=== PATIENT | male | born 1960 | race Caucasian/White ===

== ENCOUNTER 2019-01-03 14:28 | Observation (INO) | payer MEDICARE ==
[2019-01-03] VITALS (10 sets, daily range): BP systolic 123–160; BP diastolic 80–110; Ht 185.4 cm; Wt 135.5 kg
[~2019-01-03] VITALS: Ht 185.4 cm; Wt 135.5 kg
--- NOTE | ~2019-01-03 | HEMODYNAMI ---
PATIENT:DIDIER BRINK MEDICAL RECORD: [id number] : 62 [facility] ADMISSION DATE: 01/03/19 Generatedon:01/04/201910:33 Patient name: DIDIER BRINK Patient #: [id number] SSN: D OB: 1960 Date of study: 01/04/2019 Page: Of Hemodynamic Procedure Report Patient Data Patient Demographics Procedure consent was obtained First Name: DIDIER Gender: Male Last Name: KEENA : 1960 Patient #: [id number] Age: 58 year(s) Race: Unknown Additional ID: [id number] Contact details [address]: [address] [place] [address] State: [place] City: [place] Zip code: [address] Past Medical History Allergies Allergen Reaction Date Comments Reported Iodine 01/04/2019 Penicillins 01/04/2019 Morphine 01/04/2019 Statins 01/04/2019 Admission Admission Data Admission Date: 01/03/2019 Admission Time: 18:02 Room #: D.2114 Procedure Procedure Types Cath Procedure Diagnostic Procedure [facility] w/Coronaries Sedation Charges Moderate Sedation up to 15 minutes PCI Procedure Coronary Stent Coronary Stent Initial Procedure Description Procedure Date Procedure Date: 01/04/2019 Procedure Start Time: 10:07 Procedure End Time: 10:32 Procedure Staff Name Function Stiven Alfred MD Performing Physician Chelsea Chaney RT Monitor Campbell Mart RN Nurse Derrick Solorzano RT Scrub Procedure Data Cath Procedure Fluoroscopy Diagnostic fluoroscopy Total fluoroscopy Time: 7.2 time: 7.2 min min Diagnostic fluoroscopy Total fluoroscopy dose: dose: 1802 mGy 1802 mGy Contrast Material Contrast Material Type Amount (ml) Isovue 370 158 Entry Location Entry Primary Successful Side Size Upsize Upsize Entry Closure Piña ccessful Closure Location (Fr) 1 (Fr) 2 (Fr) Remarks Device Remarks Radial Right 6 Fr Mechanical artery Short Compression Estimated blood loss: 10 ml Diagnostic catheters Device Type Used For End Catheter Placement DIAGNOSTIC Jabari 110cm LV Angiography 5Fr catheter ([id number]) DIAGNOSTIC Jabari 110cm Right Coronary 5Fr catheter ([id number]) Angiography DIAGNOSTIC Jabari 110cm Left Coronary 5Fr catheter (688608) Angiography DIAGNOSTIC Pigtail 5Fr LV Angiography catheter ([id number]) Procedure Complications No complications Procedure Medications Medication Administration Route Dosage 0.9% NaCl I.V. 100 ml/hr Oxygen etCO2 Nasal cannula 2 l/min Heparin Flush Bag added to field 2 bags (1000units/500ml NS) Lidocaine 2% added to field 20 Radial Cocktail added to field 1 syringe (Verapomil 2mg/Nitro 400mcg/Heparin 1500units) Benadryl I.V. 50 mg Versed I.V. 1 mg Fentanyl I.V. 50 mcg Radial Cocktail I.A. 1 syringe (Verapomil 2mg/Nitro 400mcg/Heparin 1500units) Heparin Bolus I.V. 87954 units Plavix P.O. 600 mg Hemodynamics Rest Heart Rate: 99 (bpm) Pressure Samples Time Site Value (mmHg) Purpose Heart Use Rate(bpm) 10:10 LV 115/26,22 EDP 162 10:15 LV 152/2,20 EDP 116 10:15 LV 152/14,21 Snapshot 98 Gradients Valve Time Site Site Mean SEP/DFP Peak To Heart Use 1 2 (mmHg) (sec/min) Peak Rate (mmHg) (bpm) Aortic 10:16 LV AO 95 Snapshots Pre Cath Intra NCS Post Cath Vital Signs Time Heart Resp SPO2 etCO2 NIBP (mmHg) Rhythm Pain Sedation Rate (ipm) (%) (mmHg) Status Level (bpm) 9:53:21 95 11 92 0 160/108(133) NSR 0 (11) 10(A) , No pain 9:57:43 103 11 94 0 149/98(127) NSR 0 (11) 10(A) , No pain 10:02:03 90 10 92 35.4 157/91(122) NSR 0 (11) 10(A) , No pain 10:07:29 92 11 94 28.6 145/91(136) NSR 0 (11) 9(A) , No pain 10:11:51 96 21 92 29.4 127/75(104) NSR 0 (11) 9(A) , No pain 10:16:05 94 14 93 27.8 130/84(109) NSR 0 (11) 9(A) , No pain 10:20:17 97 16 94 0 138/90(109) NSR 0 (11) 9(A) , No pain 10:24:33 95 11 96 38.4 142/87(127) NSR 0 (11) 10(A) , No pain 10:28:43 94 17 96 33.1 136/103(122) NSR 0 (11) 10(A) , No pain 10:32:57 100 18 97 27.1 149/91(124) NSR 0 (11) 10(A) , No pain Medications Time Medication Route Dose Verified Delivered Reason Not es Effectiveness by by 9:57:39 0.9% NaCl I.V. 100 Campbell Campbell Per physician ml/hr Brittny Mart RN RN 9:57:49 Oxygen etCO2 2 l/min Campbell Campbell for low 02 sats Nasal Brittny Mart cannula RN RN 9:57:58 Heparin Flush added 2 bags Campbell Campbell used for Bag to Brittny Mart procedure (1000units/500ml RN RN NS) 9:58:08 Lidocaine 2% added 20ml Campbell Campbell for local to vial Geriigan Brittny anesthetic field ESQUIVEL RN 9:58:19 Radial Cocktail added 1 Cambpell Campbell used for (Verapomil to syringe Brittny Mart procedure 2mg/Nitro field ESQUIVEL RN 400mcg/Heparin 1500units) 9:58:30 Benadryl I.V. 50 mg Campbell Campbell Per physician Brittny Mart RN RN 10:03:29 Versed I.V. 1 mg Campbell Campbell for sedation Brittny Mart RN RN 10:03:37 Fentanyl I.V. 50 mcg Campbell Campbell for sedation Brittny Mart RN RN 10:08:27 Radial Cocktail I.A. 1 Campbell Stiven for (Verapomil syringe Brittny cobos 2mg/Nitro RN 400mcg/Heparin 1500units) 10:20:57 Heparin Bolus I.V. 13,000 Campbell Campbell for units Brittny Mart anticoagulation RN RN 10:33:18 Plavix P.O. 600 mg Campbell Campbell for Brittny Mart antiplatelet RN RN therapy Procedure Log Time Note 9:26:23 Time tracking: Regular hours (M-F 7:00 - 5:00) 9:26:28 Plan of Care:Hemodynamics will remain stable., Cardiac rhythm will remain stable., Comfort level will be maintained., Respiratory function will remain adequate., Patient/ family verbilizes understanding of procedure., Procedure tolerated without complication., Recovers from procedure without complications.. 9:26:31 Campbell Mart RN sent for patient. Start room use. 9:35:56 Patient received from PCU to CCL 1 Alert and oriented. Tansferred to table in Supine position. 9:35:58 Warm blankets applied, and smith hugger turned on for patient comfort. 9:35:58 Correct patient and procedure confirmed by team. 9:35:59 Signed procedure consent form obtained from patient. 9:36:00 ECG and BP/O2 sat monitors applied to patient. 9:36:01 Full Disclosure recording started 9:52:09 Vital chart was started 9:55:28 Baseline sample Acquired. 9:55:33 Rhythm: sinus rhythm 9:55:40 H&P Date Dictated: 01/04/2019 Within 30 days and on chart.. 9:55:48 Pre-procedure instructions explained to patient. 9:55:48 Pre-op teaching completed and patient verbalized understanding. 9:55:49 Family in patients room. 9:55:55 Patient NPO since Midnight. 9:56:27 Patient allergic to Iodine 9:56:31 Patient allergic to Penicillins 9:56:35 Patient allergic to Morphine 9:56:47 Patient allergic to Statins 9:56:53 Is the patient allergic to Iodine/contrast media? Yes. 9:57:01 Was the patient premedicated? Yes 9:57:03 Is patient on blood thinner?No 9:57:39 0.9% NaCl 100 ml/hr I.V. was administered by Campbell Mart RN; Per physician; 9:57:49 Oxygen 2 l/min etCO2 Nasal cannula was administered by Campbell Mart RN; for low 02 sats; :57:58 Heparin Flush Bag (1000units/500ml NS) 2 bags added to field was administered by Campbell Mart RN; used for procedure; 9:58:08 Lidocaine 2% 20ml vial added to field was administered by Campbell Mart RN; for local anesthetic; 9:58:19 Radial Cocktail (Verapomil 2mg/Nitro 400mcg/Heparin 1500units) 1 syringe added to field was administered by Campbell Mart RN; used for procedure; 9:58:30 Benadryl 50 mg I.V. was administered by Campbell Mart RN; Per physician; 9:58:55 Patient diabetic? No. 9:59:03 If diabetic: On Metformin? No 9:59:07 Previous problem with sedation/anesthesia? No ? 9:59:08 Snore? Yes 9:59:09 Sleep apnea? Yes 9:59:10 Deviated septum? No 9:59:11 Opens mouth fully? Yes 9:59:12 Sticks out tongue? Yes 9:59:17 Airway obstruction? Yes COPD 9:59:20 Dentures? No ? 9:59:23 Pre procedure: right dorsailis pedis pulse 2+ Normal; easily identifiable; not easily obliterated 9:59:25 Modified Taqueria's test Ulnar < 7 seconds 9:59:28 Patient pain scale 0/10 ?. 9:59:33 IV patent on arrival in right forearm with 0.9% NaCl at O. 9:59:35 Lab results completed and on chart. 9:59:39 Right Radial & Right Groin area was prepped with chlora-prep and draped in sterile fashion 9:59:40 Alarms reviewed by R. N. 9:59:40 Sharps counted by scrub and verified by R.N. 9:59:45 Use device set Radial Dx or PCI 9:59:46 ACIST Syringe (30834) opened to sterile field. 9:59:46 Medline Cath Pack ([id number]) opened to sterile field. 9:59:47 Bag Decanter () opened to sterile field. 9:59:47 DIAGNOSTIC WIRE .035 260cm J wire (549413) opened to sterile field. 9:59:48 ACIST Hand Control (97081) opened to sterile field. 9:59:50 ACIST Manifold (77603) opened to sterile field. 9:59:50 Tegaderm 4 x 4 (1626W) opened to sterile field. 9:59:51 MBrace Wrist Support ([id number]) opened to sterile field. 9:59:52 NEEDLE Cook 21G 4cm Radial (M99635) opened to sterile field. 9:59:53 SHEATH 6FR Slender (43-8845) opened to sterile field. 10:02:42 Final Timeout: patient, procedure, and site verified with staff and physician. All members of the team are in agreement. 10:02:44 Right Radial site verified by team. 10:02:52 Maximum allowable Isovue 370 dose 300ml. Physician notified. (300ml for normal creatinines. For patients with creatinine of 1.7 or higher multiply weight(kg) x 5 divided by creatinine.) 10:02:56 Fire Safety Assessment: A--An alcohol-based skin anteseptic being used preoperatively., C--Open oxygen or nitrous oxide is being used., D--An ESU, laser, or fiber-optic light is being used. 10:03:00 Physical assessment completed. ASA score P 2 - A patient with mild systemic disease as per Stiven Alfred MD. 10:03:02 Sedation plan: IV Moderate Sedation Medication:Versed, Fentanyl 10:03:29 Versed 1 mg I.V. was administered by Campbell Mart RN; for sedation; 10:03:37 Fentanyl 50 mcg I.V. was administered by Campbell Mart RN; for sedation; 10:06:48 Procedure started. 10:07:00 Zero performed for pressure channel P1 10:07:09 Local anesthetic to right radial artery with Lidocaine 2% by Stiven Alfred MD.INITIAL ACCESS ONLY 10:07:16 Zero performed for pressure channel P1 10:08:20 A 6 Fr Short sheath was inserted into the Right Radial artery 10:08:27 Radial Cocktail (Verapomil 2mg/Nitro 400mcg/Heparin 1500units) 1 syringe I.A. was administered by Stiven Alfred MD; for vasodilation; 10:09:07 A DIAGNOSTIC Jabari 110cm 5Fr catheter ([id number]) was advanced over the wire and used for LV Angiography.PATIENT HAVING RUNS OF VT. UNABLE TO COMPLETE LV GRAM; CATHETER REMOVED. 10:11:39 A DIAGNOSTIC Jabari 110cm 5Fr catheter (883192) was advanced over the wire and used for Right Coronary Angiography. 10:12:30 A DIAGNOSTIC Jabari 110cm 5Fr catheter (371335) was advanced over the wire and used for Left Coronary Angiography. 10:13:31 Catheter removed. 10:15:13 A DIAGNOSTIC Pigtail 5Fr catheter ([id number]) was advanced over the wire and used for LV Angiography. 10:15:50 LV gram done using RODRIGUEZ 10:15:52 LV hemodynamics recorded. 10:15:55 Injector settings: Ml/sec: 10, Volume: 20, 10:15:58 EF : 55 % 10:16:19 Catheter removed. 10:16:25 Use device set ALFRED PCI 10:16:28 TUBING High Pressure Extension Tubing (Alfred) ([id number]) opened to sterile field. 10:16:30 INFLATOR Merit BasixCompak (MP8246) opened to sterile field. 10:16:32 BMW 300cm [place] 2 J wire (9607039I) opened to sterile field. 10:17:13 GUIDE 6FR XBLAD 3.5 catheter ([id number]) opened to sterile field. 10:18:06 6 Fr XBLAD 3.5 guide catheter was inserted over the wire 10:20:24 BMW wire advanced. 10:20:57 Heparin Bolus 13,000 units I.V. was administered by Campbell Mart RN; for anticoagulation; 10:27:37 Place stent Inflation Number: 1 A INTEGRITY OTW 3.5 X 30 stent ([id number]) was prepped and advanced across the Prox LAD. The stent was deployed at 15 MARIANGEL for 0:20 (min:sec). 10:28:20 Stent catheter was removed intact over wire. 10:28:23 Wire removed. 10:28:24 Guide catheter removed. 10:28:42 Sheath removed intact; hemostasis achieved with Mechanical Compression to the Right Radial artery. 10:28:45 Procedure ended.(Physican Out) 10:29:12 TR BAND Large ([id number]) opened to sterile field. 10:29:17 Fluoroscopy time 07.20 minutes. 10:29:20 Fluoroscopy dose: 1802 mGy 10:29:20 Flurop Dose total: 1802 10:29:24 Contrast amount:Isovue 370 158ml. 10:29:26 Sharps counted by scrub and verified by R.N. 10:29:29 TR band inflated with 12cc of air. 10:29:30 Insertion/operative site no bleeding no hematoma. 10:29:47 Post right radial artery:stable, clean and dry 10:29:49 Post Procedure Pulses reassessed and unchanged 10:29:52 Post-procedure physical assessment completed. ASA score P 2 - A patient with mild systemic disease as per Stiven Alfred MD. 10:29:54 Post procedure rhythm: unchanged. 10:29:56 Estimated blood loss: 10 ml 10:29:59 Post procedure instruction explained to patient.Patient verbalizes understanding. 10:30:00 Patient needs reinforcement of post procedure teaching. 10:30:10 Procedure type changed to Cath procedure, Diagnostic procedure, LHC, LHC w/Coronaries, Sedation Charges, Moderate Sedation up to 15 minutes, PCI procedure, Coronary Stent, Coronary Stent Initial 10:30:14 Procedure Complication : No complications 10:30:23 See physician's report for complete and final results. 10:30:51 Procedure and supply charges have been captured, reviewed, submitted and are correct. 10:32:33 Vital chart was stopped 10:32:34 Report given to PCU. 10:32:39 Patient transfered to PCU with Bed. 10:32:51 Procedure ended. 10:32:51 Full Disclosure recording stopped 10:33:02 End room use (Document Last) 10:33:18 Plavix 600 mg P.O. was administered by Campbell Mart RN; for antiplatelet therapy; Intervention Summary Intervention Notes Time ActionType Lesion and Equipment Action# Pressure Duration Attributes Used 10:27:37 Place stent Prox LAD INTEGRITY 1 15 00:20 OTW 3.5 X 30 stent ([id number]) Device Usage Item Name Manufacture Quantity Catalog Hospital Part Current Minimal Lot# / Number Charge Number Stock Stock Serial# Code ACIST Acist 1 98139 391711 912986 677731 20 Syringe Medical (91341) Systems Inc Medline Medline 1 [id number] 434553 52818 517742 5 Cath Pack ([id number]) Bag Microtek 1 2001S 060638 16762 265008 5 Decanter Medical Inc. () DIAGNOSTIC St Bishnu 1 853280 096766 188847 759157 30 WIRE .035 260cm J wire (588854) ACIST Hand Acist 1 82737 727442 480410 419121 5 Control Medical (30703) Systems Inc ACIST Acist 1 93650 022636 961556 553571 5 Manifold Medical (43890) Systems Inc Tegaderm 4 3M 1 1626W 499870 755054 167406 5 x 4 (1626W) MBrace Advanced 1 140-0250-00 141212 42010 388252 5 Wrist Vascular Support Dynamics ([id number]) NEEDLE Cook Cook Medical 1 N73864 681120 213697 866007 5 21G 4cm Radial (L90177) SHEATH 6FR Terumo 1 [id number] 633839 519283 083250 5 Slender (80-1060) DIAGNOSTIC Terumo 1 40-5023 690852 543511 701224 5 Jabari 110cm 5Fr catheter (953739) DIAGNOSTIC Cardinal 1 [id number] 027335 443133 132531 5 Pigtail 5Fr Health catheter (879181Y) TUBING High Merit 1 [id number] 221216 63478 444303 10 Pressure Medical Extension Tubing (Alfred) (CN1104B) INFLATOR Merit 1 YE9347 981775 303860 054144 15 Merit Medical BasixCompak (SE7615) BMW 300cm Alcantara 1 [id number] 884049 472589 791840 5 [place] 2 Vascular J wire (2922627U) GUIDE 6FR Cardinal 1 [id number] 479808 173261 144417 10 XBLAD 3.5 Health catheter (63703219) INTEGRITY Medtronic 1 [id number] 904814 427432 206165 7 [id number] OTW 3.5 X 30 stent ([id number]) TR BAND Terumo 1 [id number] 202035 130238 696621 40 Large ([id number]) Signature Audit Taiban Stage Time Signature Unsigned Intra-Procedure 01/04/2019 Chelsea 10:33:54 AM Counts RT(R) Signatures Monitor : Chelsea Signature : Counts RT Date : Time : [facility] [address] [place] [address]
[2019-01-03] MEDS ORDERED: TEGRETOL200 MG PO (14:50)
[2019-01-03] MEDS ORDERED: OMEPRAZOLE20 M1 PO (14:50)
[2019-01-03] MEDS ORDERED: ALBUTEROL SULF8.5 GM INH (14:50)
[2019-01-03] MEDS ORDERED: PROTONIX40 MG PO (14:50)
--- NOTE | 2019-01-03 15:36 | NUR ---
NTG TABS X 1 GIVEN EVERY 5 MIN FOR A TOTAL OF 3 TABS. PAIN RATED 9/10 PRIOR TO NTG AND DECREASED TO 7/10 AFTER 3 TABS. STATE THAT THE HEADACHE IS WORSE THAN THE CHEST PAIN.
--- NOTE | 2019-01-03 16:25 | NUR ---
C/O CONTINUED HEADACHE FROM PREVIOUS NTG TABS. ERP INFORMED ORDERS RECEIVED. PT RATE PAIN 10/10 FOR HEADACHE.
[2019-01-03 16:59] LABS: BASOPHILS 0.6 % (0-2); EOSINOPHILS 2.2 % (0-7); HEMATOCRIT 42.8 % (42.0-54.0); HEMOGLOBIN 14.8 g/dL (13.5-17.5); IMMATURE GRANULOCYTES 1.4 % (0-5); LYMPHOCYTES 17.2 % (15-50); MCH 28.5 pg (26.0-34.0); MCHC 34.6 g/dL (31.0-37.0); MCV 82.5 fL (80.0-100.0); MEAN PLATELET VOLUME 9.7 fL (7.4-10.4); MONOCYTES 8.5 % (2-11); NEUTROPHILS 70.1 % (40-80); PLATELET COUNT 312 10x3/uL (130-400); RBC 5.19 10x6/uL (4.20-6.10); RDW 15.2 % (11.5-14.5); WBC 11.7 10x3/uL (4.8-10.8)
[2019-01-03 17:08] LABS: PROTIME 12.7 SECONDS (11.6-15.0)
[2019-01-03 17:10] LABS: D-DIMER-QUANTITATIVE 0.45 ug/mLFEU (0.20-0.54)
[2019-01-03 17:16] LABS: ALBUMIN 3.3 g/dL (3.4-5.0); ALKALINE PHOSPHATASE 113 U/L (46-116); ALT (SGPT) 107 U/L (10-68); BILIRUBIN - TOTAL 0.16 mg/dL (0.2-1.3); CALC OSMOLALITY 280 mosm/kg (275-300); CALCIUM 8.4 mg/dL (8.5-10.1); CARBON DIOXIDE 29.4 mmol/L (21.0-32.0); CHLORIDE - SERUM 104 mmol/L (98-107); CREATININE - SERUM 1.2 mg/dL (0.6-1.3); GLUCOSE 124 mg/dL (74-106); PROTEIN - SERUM 7.8 g/dL (6.4-8.2); SODIUM 141 mmol/L (136-145); UREA NITROGEN 10 mg/dL (7-18); eGFR NON AFRICAN AMERICAN 66 mL/min (90-120)
[2019-01-03 17:27] LABS: CKMB 0.9 U/L (0.0-3.6); CREATINE KINASE 110 UL (21-232)
[2019-01-03 17:28] LABS: TROPONIN-I < 0.017 ng/mL (0.000-0.060)
--- NOTE | 2019-01-03 21:23 | NUR ---
PT ADMITTED TO ROOM 2113 FROM ER AT 1830. ALERT/ORIENTED. AMBULATORY. IV TO RFA WITH NS @ 75ML/HR. ADMISSION ASSESSMENT AND HISTORY OBTAINED ON INITIAL ROUNDS. PT C/O THAT THE DEMEMROL HE RECIEVED IN ER HAS NOT MADE HIS CHEST PAIN ANY BETTER AT ALL. SR PER TELEMETRY. DESCRIBES CHEST PAIN 10/10, SUBSTERNAL. MEDICATED WITH DEMEROL 50MG SIVP AND WILL MONITOR. HAVE PROVIDED WITH SANDWICH TRAY AND DRINKS. INSTRUCTED ON NPO AFTER MIDNIGHT.
[2019-01-04 00:30] VITALS: BP 144/89
--- NOTE | 2019-01-04 02:01 | NUR ---
PT REQUESTED PAIN MED FOR CHEST PRESSURE/DISCOMFORT 06/24. MEDICATED WITH DEMEROL 50MG SIVP TO RFA PIV. GIRLFRIEND AT BEDSIDE. MONITOR AND CPOC. INSTRUCTED PT ON NPO UNTIL SEEN BY GLUE SPRAYER IN AM.
[2019-01-04 03:48] VITALS: BP 149/94
--- NOTE | 2019-01-04 04:40 | NUR ---
NO CHANGE FROM INITIAL SHIFT ASSESSMENT. PT RESTING WITH FAMILY X 1 AT BEDSIDE. HAS HAD TWO DOSES OF DEMEROL THIS SHIFT FOR CHEST PAIN. SR PER TELEMETRY. MONITOR AND CPOC. NPO UNTIL SEEN BY BOAT BUILDER AND REPAIRER.
[2019-01-04 05:52] LABS: HEMOGLOBIN 13.7 g/dL (13.5-17.5); LYMPHOCYTES 25.1 % (15-50); MCH 28.8 pg (26.0-34.0); MCHC 34.3 g/dL (31.0-37.0); MEAN PLATELET VOLUME 9.2 fL (7.4-10.4); NEUTROPHILS 64.5 % (40-80); RBC 4.76 10x6/uL (4.20-6.10); RDW 15.1 % (11.5-14.5)
[2019-01-04 05:53] LABS: PLATELET COUNT 249 10x3/uL (130-400); WBC 8.6 10x3/uL (4.8-10.8)
[2019-01-04 06:13] LABS: CALCIUM 8.1 mg/dL (8.5-10.1); CARBON DIOXIDE 27.8 mmol/L (21.0-32.0); CHLORIDE - SERUM 105 mmol/L (98-107); CREATININE - SERUM 1.1 mg/dL (0.6-1.3); GLUCOSE 113 mg/dL (74-106); SODIUM 139 mmol/L (136-145); eGFR NON AFRICAN AMERICAN 73 mL/min (90-120)
[2019-01-04 06:16] LABS: CALC OSMOLALITY 278 mosm/kg (275-300); TROPONIN-I < 0.017 ng/mL (0.000-0.060); UREA NITROGEN 13 mg/dL (7-18)
[2019-01-04 07:48] VITALS: BP 132/91
--- NOTE | 2019-01-04 08:05 | NUR ---
CONSENTS SIGNED FOR [facility]. WILL CONT. PLAN OF CARE.
--- NOTE | 2019-01-04 09:35 | NUR ---
LEAVING FOR JACK SPINNER BY BED. WILL CONT. PLAN OF CARE.
--- NOTE | 2019-01-04 10:55 | NUR ---
BACK FROM CFO CONTROLLER. VS WNL. RIGHT WRIST STABLE WITH TR BAND INTACT. WILL CONT. PLAN OF CARE.
[2019-01-04] MEDS ORDERED: PLAVIX75 MG PO (10:58)
[2019-01-04] MEDS ORDERED: ASPIRIN81 MG PO (10:59)
[2019-01-04 14:03] VITALS: BP 162/73
--- NOTE | 2019-01-04 14:29 | NUR ---
TR BAND DCD WITHOUT BLEEDING OR HEMATOMA NOTED. WILL MONITOR.
[2019-01-04 14:41] VITALS: BP 140/82
--- NOTE | 2019-01-04 14:44 | NUR ---
IV AND TELEMETRY DCD. DC PLANS GIVEN. UNDERSTANDING VOICED.
--- NOTE | 2019-01-04 15:01 | NUR ---
ESCORTED TO CAR BY W/C.
--- NOTE | 2019-01-05 08:35 | MORECARE ---
CASE MANAGEMENT DISCHARGE SUMMARY PATIENT: DIDIER BRINK UNIT: [id number] ADM DATE: 01/03/19 AGE: 58 : 62 SEX: M ROOM/BED: D.2114 AUTHOR: BULL BELTRE PHYSICIAN: REFERRING PHYSICIAN: LEIA RYAN M.D. DATE OF SERVICE: 01/05/19 Discharge Plan Patient Name: DIDIER BRINK [facility] [facility] 1960 Planned Disposition: Home Anticipated Discharge Date: 01/04/19 Discharge Date: 01/04/2019 Expected LOS: 1 Initial Reviewer: [email or web address] Initial Review Date: 01/05/2019 Generated: 01/05/19 9:35 am Patient Name: DIDIER BRINK Page 99410 at 0835 All edits/amendments must be made on the electronic document DICTATION DATE: 01/05/1933 PHYSICIST ACOUSTICS: MARCIAL 01/05/1933 RPT#: [id number] DC DATE:01/04/19 STATUS: DIS IN [facility] [address] [place] [address] END OF REPORT
== END 2019-01-04 15:02 | disposition home or self-care (01) ==
LOC: D.ER 14:28 → D.M2 18:02 → D.EDHOLD 18:02 → OBSVTIME 18:03 → D.M2 18:11
PROVIDERS: Family Medicine; ADMIT Internal Medicine Cardiovascular Disease; ATTEND Internal Medicine Cardiovascular Disease
DX: I25.110 Atherosclerotic heart disease of native coronary artery with unstable angina pectoris (principal); I10 Essential (primary) hypertension; I45.10 Unspecified right bundle-branch block

== ENCOUNTER 2019-01-16 16:03 | Inpatient (IN) | payer MEDICARE ==
[~2019-01-16] VITALS: Ht 185.4 cm; Wt 129.1 kg
--- NOTE | ~2019-01-16 | HP ---
PATIENT: DIDIER STEPHEN MEDICAL RECORD: [id number] ACCOUNT: [id number] LOCATION:[address] : [birth year] ADMISSION DATE: 01/16/19 PCP: No PCP HISTORY AND PHYSICAL EXAMINATION DIAGNOSES: 1. Deep vein thrombosis, right upper extremity. 2. Coronary artery disease. 3. Recent PTCA and stent, right radial approach. 4. Seizure disorder, controlled on Tegretol. 5. Smoking. 6. COPD. HISTORY: Mr. Stephen recently underwent PTCA and stent via right radial approach by Dr. Alfred of an LAD lesion. He is stable from a cardiac standpoint. He has noticed increased pain and swelling of the right upper extremity over the past 2-3 days. He presents. His CTA is with wide patency of the arterial system; however, venous Doppler shows deep vein thrombosis of the right subclavian vein. He continues to have pain and swelling in the arm. PHYSICAL EXAMINATION: GENERAL APPEARANCE: Well-nourished, well-developed, appears stated age. Level of distress, comfortable. PSYCHIATRIC: Mental status, alert, normal affect. Orientation, oriented to time, place and person. EYES: Lids and conjunctiva, noninjected. No discharge, no pallor. ENT: Lips, teeth, gums, normal dentition. Oropharynx, no cyanosis, no pallor. NECK: Carotid arteries, bilateral normal upstroke, no bruits, no thrills. JUGULAR VEINS: No jugular venous pressure or distention. CERVICAL LYMPH NODES: Nontender, nonenlarged. THYROID: Not enlarged. Nontender. No nodules. LUNGS: Respiratory effort, unlabored. CHEST: Normal curvature. No thoracic deformity. No chest wall tenderness. Percussion, resonant. Auscultation, clear. No wheezes, no rales, no rhonchi. CARDIOVASCULAR: Precordial exam, nondisplaced. No heaves or pericardial thrills. Rate and rhythm, regular. Heart sounds, normal S1, normal S2. No S3, no gallop, no rub. Systolic murmur, not heard. Diastolic murmur, not heard. EXTREMITIES: No cyanosis, no edema. Peripheral pulses, full and equal in all extremities, except as noted. No bruits appreciated. ABDOMEN: Soft, nondistended. Normal aorta. No bruit. Nontender. No masses. Liver, nontender, no hepatomegaly. Spleen, nontender, no splenomegaly. MUSCULOSKELETAL: No joint tenderness. No joint swelling. No erythema. NEUROLOGICAL: Normal gait, normal strength, normal tone. SKIN: Warm and dry. OVERALL IMPRESSION: Deep vein thrombosis, right upper extremity. He is on heparin at this point. [facility] of [facility]agulation and pain control. TRANSINT:[id number] Voice Confirmation ID: [id number] DOCUMENT ID: [id number] HISTORY AND PHYSICAL [id number] DIDIER STEPHEN JEFFREY MD CC: [id number] DICTATION DATE: 01/17/19 1157 HYDRAULIC PUNCH PRESS OPERATOR: 01/17/19 1352 ADM IN [facility] [address] [place] [id number]
--- NOTE | ~2019-01-16 | DS ---
PATIENT:DIDIER STEPHEN :62 MEDICAL RECORD: [id number] DISCHARGE SUMMARY ADMISSION DATE: 01/17/19 DISCHARGE DATE: 01/18/19 DIAGNOSES: 1. Deep vein thrombosis, right upper extremity. 2. Coronary artery disease. 3. Recent PTCA and stent. 4. Chronic obstructive pulmonary disease. 5. Smoking history. 6. Hypertension. HISTORY HOSPITAL COURSE: Mr. Stephen presented last week with anginal symptomatology. Underwent cardiac catheterization by Dr. Alfred through a right radial arterial approach. He came back this weekend with right arm pain. Found to have deep vein thrombosis in the right subclavian vein. The arterial study was normal. He was placed on heparin drip, changed over to Eliquis. Given samples of Eliquis at discharge as well as [place] for pain control. Follow up with Dr. Alfred as previously scheduled. TRANSINT:[id number] Voice Confirmation ID: [id number] DOCUMENT ID: [id number] DESTINY ACOSTA MD CC: [id number] DICTATION DATE: 01/18/19 1300 DEPENDENCY COUNSELOR: 01/19/19 0449 DIS IN 01/18/19 [facility] [address] [place] [address]
[~2019-01-16 16:03] MED LIST: ALBUTEROL SULF8.5 GM INH; ASPIRIN81 MG PO; OMEPRAZOLE20 M1 PO; PLAVIX75 MG PO; PROTONIX40 MG PO; TEGRETOL200 MG PO
[2019-01-16 16:50] VITALS: BP 158/105
[2019-01-16 17:58] LABS: BASOPHILS 0.6 % (0-2); EOSINOPHILS 3.3 % (0-7); HEMATOCRIT 43.4 % (42.0-54.0); HEMOGLOBIN 14.6 g/dL (13.5-17.5); IMMATURE GRANULOCYTES 0.6 % (0-5); LYMPHOCYTES 16.3 % (15-50); MCHC 33.6 g/dL (31.0-37.0); MCV 83.3 fL (80.0-100.0); MEAN PLATELET VOLUME 9.7 fL (7.4-10.4); MONOCYTES 9.9 % (2-11); NEUTROPHILS 69.3 % (40-80); PLATELET COUNT 277 10x3/uL (130-400); RBC 5.21 10x6/uL (4.20-6.10); RDW 15.1 % (11.5-14.5); WBC 9.9 10x3/uL (4.8-10.8)
[2019-01-16 18:01] VITALS: BP 138/88
[2019-01-16 18:13] LABS: ALBUMIN 3.5 g/dL (3.4-5.0); ALKALINE PHOSPHATASE 113 U/L (46-116); ALT (SGPT) 62 U/L (10-68); APTT 26.6 SECONDS (22.8-39.4); BILIRUBIN - TOTAL 0.17 mg/dL (0.2-1.3); CALC OSMOLALITY 274 mosm/kg (275-300); CALCIUM 8.7 mg/dL (8.5-10.1); CARBON DIOXIDE 23.4 mmol/L (21.0-32.0); CHLORIDE - SERUM 105 mmol/L (98-107); GLUCOSE 95 mg/dL (74-106); INR 1.01 (0.85-1.17); POTASSIUM - SERUM 4.3 mmol/L (3.5-5.1); PROTIME 12.8 SECONDS (11.6-15.0); SODIUM 138 mmol/L (136-145); UREA NITROGEN 10 mg/dL (7-18); eGFR NON AFRICAN AMERICAN 82 mL/min (90-120)
[2019-01-16 20:00] VITALS: BP 139/78
[2019-01-17] VITALS: BP 139/78
[2019-01-17 03:42] VITALS: BP 139/78; Ht 185.4 cm; Wt 129.1 kg
[2019-01-17 04:00] VITALS: BP 148/82
[2019-01-17 06:38] LABS: BASOPHILS 0.1 % (0-2); EOSINOPHILS 0.1 % (0-7); HEMATOCRIT 40.8 % (42.0-54.0); HEMOGLOBIN 14.1 g/dL (13.5-17.5); IMMATURE GRANULOCYTES 0.6 % (0-5); LYMPHOCYTES 7.1 % (15-50); MCH 28.4 pg (26.0-34.0); MCHC 34.6 g/dL (31.0-37.0); MCV 82.3 fL (80.0-100.0); MEAN PLATELET VOLUME 9.4 fL (7.4-10.4); MONOCYTES 4.2 % (2-11); NEUTROPHILS 87.9 % (40-80); PLATELET COUNT 282 10x3/uL (130-400); RBC 4.96 10x6/uL (4.20-6.10); RDW 15.1 % (11.5-14.5)
[2019-01-17 06:55] LABS: ALBUMIN 3.4 g/dL (3.4-5.0); ANION GAP 15.8 mmol/L (8-16); BILIRUBIN - TOTAL 0.24 mg/dL (0.2-1.3); CALCIUM 8.9 mg/dL (8.5-10.1); CARBON DIOXIDE 20.7 mmol/L (21.0-32.0); CREATININE - SERUM 1.2 mg/dL (0.6-1.3); POTASSIUM - SERUM 4.5 mmol/L (3.5-5.1); PROTEIN - SERUM 8.1 g/dL (6.4-8.2)
[2019-01-17 09:25] VITALS: BP 178/99
[2019-01-17 14:03] VITALS: BP 147/98
[2019-01-17] MEDS ORDERED: COREG 3.1253.125 MG PO (14:15)
[2019-01-17] MEDS ORDERED: SYMBICORT 16010.2 GM INH (14:15)
[2019-01-17 20:00] VITALS: BP 118/102
[2019-01-18] VITALS: BP 138/98
[2019-01-18 04:00] VITALS: BP 144/59
[2019-01-18 08:55] VITALS: BP 137/93; BP 139/93
[2019-01-18 12:36] VITALS: BP 137/78
[2019-01-18] MEDS ORDERED: ELIQUIS5 MG PO (13:42)
[2019-01-18] MEDS ORDERED: HYDROCODON-ACE1 EA10 PO (13:43)
--- NOTE | 2019-01-18 14:01 | MORECARE ---
CASE MANAGEMENT DISCHARGE SUMMARY PATIENT: DIDIER BRINK UNIT: [id number] ADM DATE: 01/17/19 AGE: 58 : 62 SEX: M ROOM/BED: D.2110 AUTHOR: BULL BELTRE PHYSICIAN: REFERRING PHYSICIAN: DESTINY CAOSTA MD DATE OF SERVICE: 01/18/19 Discharge Plan Patient Name: DIDIER BRINK [facility] [facility] 1960 Planned Disposition: Home Anticipated Discharge Date: 01/18/19 Discharge Date: Expected LOS: 1 Initial Reviewer: [email or web address] Initial Review Date: 01/18/2019 Generated: 01/18/19 3:00 pm DCPIA - Discharge Planning Initial Assessment Updated by [email or web address]: Navin Rodriguez on 01/18/19 1:56 pm * Is the patient Alert and Oriented? Yes * How many steps to enter\exit or inside your home? 0-0 / 3-I * PCP IN PROCESS OF OBTAINING NEW PRIMARY CARE DOCTOR ON [facility], CANNOT REMEMBER DOCTOR'S NAME * [facility] [address] * Preadmission Environment Home with Family * ADLs Independent * Equipment None * Other Equipment NO MEDICAL EQUIPMENT PROVIDER PREFERENCE * List name and contact numbers for known caregivers / representatives who currently or will assist patient after discharge: RIGO GRAY, SIGNIFICANT OTHER, * Verbal permission to speak to the caregivers and representatives has been obtained from the patient. N/A * Community resources currently utilized None * Please name any agencies selected above. NONE * Additional services required to return to the preadmission environment? No * Can the patient safely return to the preadmission environment? Yes * Has this patient been hospitalized within the prior 30 days at any hospital? Yes Patient Name: DIDIER BRINK Page [id number] at 1401 All edits/amendments must be made on the electronic document DICTATION DATE: 01/18/19 1400 ANALYTICAL DATA SCIENTIST: MARCIAL 01/18/19 1400 RPT#: [id number] DC DATE: STATUS: ADM IN [facility] [address] [id number] END OF REPORT
--- NOTE | 2019-01-18 14:09 | MORECARE ---
CASE MANAGEMENT DISCHARGE SUMMARY PATIENT: DIDIER BRINK UNIT: [id number] ADM DATE: 01/17/19 AGE: 58 : 62 SEX: M ROOM/BED: D.2110 AUTHOR: ALEXSANDER,DOC PHYSICIAN: REFERRING PHYSICIAN: DESTINY ACOSTA MD DATE OF SERVICE: 01/18/19 Discharge Plan Patient Name: DIDIER BRINK Facility: [facility]:[place] : 1960 Planned Disposition: Home Anticipated Discharge Date: 01/18/19 Discharge Date: Expected LOS: 1 Initial Reviewer: [email or web address] Initial Review Date: 01/18/2019 Generated: 01/18/19 3:09 pm Comments DCP- Discharge Planning Updated by [email or web address]: Navin Rodriguez on 01/18/19 1:[address] Patient Name: DIDIER BRINK Admission Status: ER Accout number: [id number] Admission Date: 01-17-2019 : 1960 Admission Diagnosis: Attending: VIOLA ACOSTA Current LOS: 1 Anticipated DC Date: 01-18-2019 Planned Disposition: Home Primary Insurance: MEDICARE A & B Discharge Planning Comments: CM MET WITH PT IN ROOM TO DISCUSS DISCHARGE PLANNING AND NEEDS. PT REPORTS LIVING AT HOME INDEPENDENTLY WITH HIS SIGNIFICANT OTHER. PT HAS NO MEDICAL EQUIPMENT AND NO MEDICAL EQUIPMENT PROVIDER. PT HAS NO OUTSIDE SERVICES ASSISTING IN THE HOME. CM DISCUSSED AVAILABILITY OF HOME HEALTH, REHAB SERVICES AND MEDICAL EQUIPMENT. PT DENIES DISCHARGE NEEDS, REPORTS HIS FRIEND WILL PICK HIM UP FOR DISCHARGE HOME. PT REPORTS HAVING BEEN PRESCRIBED INHALERS AND WANTED TO KNOW IF CM COULD GET HIM A NEBULIZER. CM REVIEWED DISCHARGE MEDICATIONS LISTING, EXPLAINED TO PT THAT THE DOCTOR HAS NOT PRESCRIBED ANY INHALED MEDICATIONS FOR DISCHARGE HOME AND CM COULD NOT ARRANGE NEBULIZER. CM INSTRUCTED PT TO FOLLOW UP WITH PRIMARY CARE DOCTOR. PT DENIES NEEDS. [facility]AR[facility] NURSE NOTIFIED. Lard Maker: Navin Rodriguez DCPIA - Discharge Planning Initial Assessment Updated by [email or web address]: Navin Rodriguez on 01/18/19 1:56 pm * Is the patient Alert and Oriented? Yes * How many steps to enter\exit or inside your home? 0-0 / 3-I * PCP IN PROCESS OF OBTAINING NEW PRIMARY CARE DOCTOR ON [facility], CANNOT REMEMBER DOCTOR'S NAME * Pharm[facility] [address] * Preadmission Environment Home with Family * ADLs Independent * Equipment None * Other Equipment NO MEDICAL EQUIPMENT PROVIDER PREFERENCE * List name and contact numbers for known caregivers / representatives who currently or will assist patient after discharge: RIGO GRAY, SIGNIFICANT OTHER, * Verbal permission to speak to the caregivers and representatives has been obtained from the patient. N/A * Community resources currently utilized None * Please name any agencies selected above. NONE * Additional services required to return to the preadmission environment? No * Can the patient safely return to the preadmission environment? Yes * Has this patient been hospitalized within the prior 30 days at any hospital? Yes Last DP export: 01/18/19 1:00 pm Patient Name: DIDIER BRINK Page [id number] at 1409 All edits/amendments must be made on the electronic document DICTATION DATE: 01/18/191408 DONOR RELATIONS MANAGER: MARCIAL 01/18/19 140 RPT#: [id number] DC DATE: STATUS: ADM IN [facility] [address] [place] [address] END OF REPORT
== END 2019-01-18 14:19 | disposition home or self-care (01) | DRG 301 ==
LOC: D.ER 16:03 → D.M2 16:03 → D.OPS 16:03 → EDSTATUS 18:41 → D.M2 18:57 → D.OPS 19:47 → OBSVTIME 19:49 → D.M2 19:49
PROVIDERS: Family Medicine; ADMIT Internal Medicine Interventional Cardiology; ATTEND Internal Medicine Interventional Cardiology
DX: I82.621 Acute embolism and thrombosis of deep veins of right upper extremity (principal); G40.909 Epilepsy, unspecified, not intractable, without status epilepticus; J44.9 Chronic obstructive pulmonary disease, unspecified; I25.10 Atherosclerotic heart disease of native coronary artery without angina pectoris; I10 Essential (primary) hypertension; G50.0 Trigeminal neuralgia; K21.9 Gastro-esophageal reflux disease without esophagitis; Z87.891 Personal history of nicotine dependence

== ENCOUNTER 2019-02-08 18:19 | Emergency (ER) | payer MEDICARE ==
[~2019-02-08] VITALS: Ht 185.4 cm; Wt 127.3 kg
[~2019-02-08 18:19] MED LIST changes: +COREG 3.1253.125 MG PO; +ELIQUIS5 MG PO; +HYDROCODON-ACE1 EA10 PO; +SYMBICORT 16010.2 GM INH
[2019-02-08 18:45] VITALS: Ht 185.4 cm; Wt 127.3 kg
[2019-02-08 21:19] VITALS: BP 140/95
== END 2019-02-08 21:22 | disposition home or self-care (01) ==
LOC: D.ER 18:19
DX: I82.621 Acute embolism and thrombosis of deep veins of right upper extremity (principal)

== ENCOUNTER 2019-02-17 19:16 | Emergency (ER) | payer MEDICARE ==
[2019-02-17 19:23] VITALS: BMI 37.0
[2019-02-17 19:49] LABS: BASOPHILS 0.6 % (0-2); EOSINOPHILS 4.4 % (0-7); HEMATOCRIT 38.2 % (42.0-54.0); IMMATURE GRANULOCYTES 0.7 % (0-5); LYMPHOCYTES 19.7 % (15-50); MCH 28.3 pg (26.0-34.0); MCV 83.2 fL (80.0-100.0); MEAN PLATELET VOLUME 9.3 fL (7.4-10.4); MONOCYTES 10.6 % (2-11); PLATELET COUNT 238 10x3/uL (130-400); RBC 4.59 10x6/uL (4.20-6.10); RDW 15.4 % (11.5-14.5); WBC 8.8 10x3/uL (4.8-10.8)
[2019-02-17 20:09] LABS: ALBUMIN 3.4 g/dL (3.4-5.0); ANION GAP 16.6 mmol/L (8-16); BILIRUBIN - TOTAL 0.16 mg/dL (0.2-1.3); CALCIUM 8.2 mg/dL (8.5-10.1); CARBON DIOXIDE 22.4 mmol/L (21.0-32.0); CREATININE - SERUM 1.3 mg/dL (0.6-1.3); PROTEIN - SERUM 7.5 g/dL (6.4-8.2)
--- NOTE | 2019-02-17 21:43 | NUR ---
DR HECTOR NOTIFIED OF ASSESSMENT RESULTS. PATIENT IS A LOW RISK. RESOURCES GIVEN. REVIEWED. PATIENT VERBALIZES UNDERSTANDING.
[2019-02-17 22:15] LABS: APTT 26.6 SECONDS (22.8-39.4); INR 1.04 (0.85-1.17); PROTIME 13.1 SECONDS (11.6-15.0)
[2019-02-17 22:16] LABS: CKMB 1.2 U/L (0.0-3.6); CREATINE KINASE 99 UL (21-232); MAGNESIUM - SERUM 2.1 mg/dL (1.8-2.4)
[2019-02-17 22:22] LABS: TROPONIN-I < 0.017 ng/mL (0.000-0.060)
[2019-02-17] MEDS ORDERED: CYCLOBENZAPRINE10 MG PO (23:40)
[2019-02-17] MEDS ORDERED: ACETAMINOPHEN500 M1 PO (23:40)
[2019-02-18 00:10] VITALS: BP 132/98
== END 2019-02-18 00:10 | disposition home or self-care (01) ==
LOC: D.ER 19:16
PROVIDERS: Family Medicine
DX: G89.18 Other acute postprocedural pain (principal); R22.2 Localized swelling, mass and lump, trunk; Z86.718 Personal history of other venous thrombosis and embolism

== ENCOUNTER 2019-02-20 17:00 | Emergency (ER) | payer MEDICARE ==
[~2019-02-20] VITALS: Ht 185.4 cm; Wt 127.3 kg
[~2019-02-20 17:00] MED LIST changes: +ACETAMINOPHEN500 M1 PO; +CYCLOBENZAPRINE10 MG PO
[2019-02-20 17:08] VITALS: Ht 185.4 cm; Wt 127.3 kg
[2019-02-20 17:29] LABS: BASOPHILS 0.7 % (0-2); EOSINOPHILS 4.8 % (0-7); HEMATOCRIT 39.6 % (42.0-54.0); HEMOGLOBIN 13.6 g/dL (13.5-17.5); IMMATURE GRANULOCYTES 0.5 % (0-5); LYMPHOCYTES 17.9 % (15-50); MCH 28.7 pg (26.0-34.0); MCHC 34.3 g/dL (31.0-37.0); MCV 83.5 fL (80.0-100.0); MEAN PLATELET VOLUME 9.2 fL (7.4-10.4); MONOCYTES 10.9 % (2-11); NEUTROPHILS 65.2 % (40-80); PLATELET COUNT 268 10x3/uL (130-400); RBC 4.74 10x6/uL (4.20-6.10); WBC 9.2 10x3/uL (4.8-10.8)
[2019-02-20 17:38] LABS: APTT 28.4 SECONDS (22.8-39.4); INR 1.12 (0.85-1.17); PROTIME 13.9 SECONDS (11.6-15.0)
[2019-02-20 17:44] LABS: ALBUMIN 3.6 g/dL (3.4-5.0); ALKALINE PHOSPHATASE 111 U/L (46-116); ALT (SGPT) 78 U/L (10-68); BILIRUBIN - TOTAL 0.32 mg/dL (0.2-1.3); CALC OSMOLALITY 284 mosm/kg (275-300); CALCIUM 8.6 mg/dL (8.5-10.1); CHLORIDE - SERUM 107 mmol/L (98-107); CREATININE - SERUM 1.3 mg/dL (0.6-1.3); GLUCOSE 119 mg/dL (74-106); POTASSIUM - SERUM 3.7 mmol/L (3.5-5.1); PROTEIN - SERUM 7.8 g/dL (6.4-8.2); SODIUM 142 mmol/L (136-145); UREA NITROGEN 14 mg/dL (7-18); eGFR NON AFRICAN AMERICAN 60 mL/min (90-120)
[2019-02-20 17:56] LABS: CREATINE KINASE 116 UL (21-232); MAGNESIUM - SERUM 2.1 mg/dL (1.8-2.4); TROPONIN-I < 0.017 ng/mL (0.000-0.060)
[2019-02-21 00:38] VITALS: BP 147/87
== END 2019-02-21 00:39 | disposition home or self-care (01) ==
LOC: D.ER 17:00
PROVIDERS: Family Medicine
DX: R07.9 Chest pain, unspecified (principal); K44.9 Diaphragmatic hernia without obstruction or gangrene

== ENCOUNTER 2019-02-28 14:01 | Emergency (ER) | payer MEDICARE ==
[~2019-02-28] VITALS: Ht 185.4 cm; Wt 127.3 kg
[2019-02-28 14:08] VITALS: Ht 185.4 cm; Wt 127.3 kg
[2019-02-28 15:04] LABS: BASOPHILS 0.2 % (0-2); EOSINOPHILS 2.7 % (0-7); HEMATOCRIT 41.4 % (42.0-54.0); HEMOGLOBIN 14.3 g/dL (13.5-17.5); IMMATURE GRANULOCYTES 0.6 % (0-5); LYMPHOCYTES 13.7 % (15-50); MCH 28.3 pg (26.0-34.0); MCHC 34.5 g/dL (31.0-37.0); MEAN PLATELET VOLUME 9.5 fL (7.4-10.4); MONOCYTES 8.8 % (2-11); PLATELET COUNT 302 10x3/uL (130-400); RBC 5.05 10x6/uL (4.20-6.10); RDW 15.1 % (11.5-14.5); WBC 9.7 10x3/uL (4.8-10.8)
[2019-02-28 15:33] LABS: ALBUMIN 3.6 g/dL (3.4-5.0); ALKALINE PHOSPHATASE 112 U/L (46-116); ALT (SGPT) 98 U/L (10-68); BILIRUBIN - TOTAL 0.24 mg/dL (0.2-1.3); CALC OSMOLALITY 277 mosm/kg (275-300); CALCIUM 8.5 mg/dL (8.5-10.1); CARBON DIOXIDE 21.8 mmol/L (21.0-32.0); CHLORIDE - SERUM 106 mmol/L (98-107); CREATININE - SERUM 1.1 mg/dL (0.6-1.3); GLUCOSE 95 mg/dL (74-106); POTASSIUM - SERUM 3.8 mmol/L (3.5-5.1); PROTEIN - SERUM 7.9 g/dL (6.4-8.2); SODIUM 140 mmol/L (136-145); UREA NITROGEN 10 mg/dL (7-18); eGFR NON AFRICAN AMERICAN 73 mL/min (90-120)
[2019-02-28 15:42] LABS: CKMB 0.9 U/L (0.0-3.6); CREATINE KINASE 78 UL (21-232); MAGNESIUM - SERUM 1.9 mg/dL (1.8-2.4); PRO BNP 21 pg/mL (0-125)
[2019-02-28 15:49] LABS: TROPONIN-I < 0.017 ng/mL (0.000-0.060)
[2019-02-28 19:33] VITALS: BP 145/88
== END 2019-02-28 19:34 | disposition home or self-care (01) ==
LOC: D.ER 14:01
PROVIDERS: Family Medicine
DX: R07.9 Chest pain, unspecified (principal); Z79.01 Long term (current) use of anticoagulants; Z86.79 Personal history of other diseases of the circulatory system; Z86.73 Personal history of transient ischemic attack (TIA), and cerebral infarction without residual deficits; I10 Essential (primary) hypertension

== ENCOUNTER → 2019-05-25 14:53 | Outpatient (CLI) | payer MEDICARE ==
[2019-02-28 14:08] VITALS: BMI 37.0
== END | disposition home or self-care (01) ==
LOC: D.US 14:30
PROVIDERS: ATTEND Internal Medicine Interventional Cardiology
DX: Z86.718 Personal history of other venous thrombosis and embolism (principal)

== ENCOUNTER 2019-05-25 16:18 | Emergency (ER) | payer MEDICARE ==
[~2019-05-25] VITALS: Ht 185.4 cm; Wt 134.5 kg
[2019-05-25 16:40] VITALS: Ht 185.4 cm; Wt 134.5 kg
[2019-05-25 17:21] LABS: BASOPHILS 0.5 % (0-2); EOSINOPHILS 4.4 % (0-7); HEMATOCRIT 40.5 % (42.0-54.0); HEMOGLOBIN 13.4 g/dL (13.5-17.5); IMMATURE GRANULOCYTES 0.5 % (0-5); LYMPHOCYTES 16.8 % (15-50); MCH 25.8 pg (26.0-34.0); MCHC 33.1 g/dL (31.0-37.0); MCV 77.9 fL (80.0-100.0); MEAN PLATELET VOLUME 9.3 fL (7.4-10.4); MONOCYTES 9.9 % (2-11); NEUTROPHILS 67.9 % (40-80); PLATELET COUNT 317 10x3/uL (130-400); RDW 14.5 % (11.5-14.5); WBC 9.1 10x3/uL (4.8-10.8)
[2019-05-25 18:07] LABS: ALBUMIN 3.6 g/dL (3.4-5.0); ANION GAP 11.7 mmol/L (8-16); BILIRUBIN - TOTAL 0.17 mg/dL (0.2-1.3); CARBON DIOXIDE 27.5 mmol/L (21.0-32.0); CREATININE - SERUM 1.2 mg/dL (0.6-1.3); POTASSIUM - SERUM 4.2 mmol/L (3.5-5.1); PROTEIN - SERUM 8.2 g/dL (6.4-8.2)
[2019-05-25 21:21] VITALS: BP 145/92
== END 2019-05-25 21:21 | disposition home or self-care (01) ==
LOC: D.ER 16:18
PROVIDERS: Family Medicine
DX: I10 Essential (primary) hypertension (principal); R00.0 Tachycardia, unspecified; I82.511 Chronic embolism and thrombosis of right femoral vein